=== PATIENT | male | born 1980 | race Caucasian/White ===

== ENCOUNTER 2017-01-28 20:47 | Emergency (ER) | payer SELFPAY ==
[~2017-01-28] VITALS: Ht 172.7 cm; Wt 113.6 kg
[~2017-01-28 20:47] MED LIST: LEVE500T53 PO; PERCT PO
[2017-01-28 20:55] VITALS: BP 128/83
[2017-01-28] MEDS ORDERED: LEVE250T2 PO (21:22)
== END 2017-01-28 23:25 | disposition left against medical advice (07) ==
LOC: EMS 20:50
DX: R55 Syncope and collapse (principal); R51 Headache; Z53.21 Procedure and treatment not carried out due to patient leaving prior to being seen by health care provider

== ENCOUNTER 2017-04-06 17:57 | Emergency (ER) | payer MEDICARE, MEDICAID ==
[~2017-04-06] VITALS: Ht 175.3 cm; Wt 104.5 kg
[~2017-04-06 17:57] MED LIST changes: +LEVE250T2 PO
[2017-04-06] MEDS ORDERED: LORazepam 2 MG/ML VIAL ONE (18:12)
[2017-04-06] MEDS ORDERED: LevETIRAcetam 1,000 MG in DEXTROSE 5%-WATER 100 ML IV ONE (18:15)
[2017-04-06 18:30] LABS: BASOPHILS % (AUTO) 0.3 % (0.0-2.0); EOSINOPHILS % (AUTO) 0.8 % (1.0-6.0); HEMATOCRIT 41.8 % (41-53); HEMOGLOBIN 14.5 g/dL (13.5-17.5); LYMPHOCYTES # (AUTO) 4.2 K/uL (1.0-4.8); LYMPHOCYTES % (AUTO) 28.1 % (22.0-44.0); MEAN CORPUSCULAR HEMOGLOBIN 31.6 pg (26.0-34.0); MEAN CORPUSCULAR HGB CONC 34.7 G/dL (31.0-37.0); MEAN CORPUSCULAR VOLUME 91 fL (80-100); MONOCYTES # (AUTO) 1.3 K/uL (0.1-1.0); MONOCYTES % (AUTO) 8.8 % (2.0-9.0); NEUTROPHILS # (AUTO) 9.2 K/uL (1.8-7.7); PLATELET COUNT (AUTO) 305 K/uL (150-450); RED BLOOD CELL COUNT(AUTO) 4.58 MIL/uL (4.50-5.90); RED CELL DISTRIBUTION WIDTH 13.5 % (11.5-14.5); WHITE BLOOD COUNT (AUTO) 14.9 K/uL (4.5-11.0)
[2017-04-06] MEDS ORDERED: LORazepam 2 MG/ML VIAL IVP ONE ×2 (18:30→19:00)
[2017-04-06 18:36] LABS: ANION GAP 12 mmol/L (8-16); CALCIUM, TOTAL 9.3 mg/dL (8.8-10.5); CARBON DIOXIDE 23 mmol/L (22-29); CHLORIDE 102 mmol/L (98-107); CREATININE 1.23 mg/dL (0.60-1.30); GLOMERULAR FILTR. RATE CALC > 60 mL/min (>60); POTASSIUM 3.3 mmol/L (3.5-5.1); SODIUM SERUM 137 mmol/L (136-145); UREA NITROGEN, BLOOD 18 mg/dL (7-18)
[2017-04-06 18:41] LABS: ALANINE AMINOTRANSFERASE 66 U/L (12-78); ALBUMIN 3.9 g/dL (3.4-5.0); ASPARTATE AMINOTRANSFERASE 26 U/L (15-37); BILIRUBIN,TOTAL 0.3 mg/dL (0.1-1.0); TOTAL PROTEIN, SERUM 7.7 g/dL (6.4-8.2)
[2017-04-06] MEDS ORDERED: SODIUM CHLORIDE 0.9% 1,000 ML IV ONE (19:00)
[2017-04-06] MEDS ORDERED: DIAZEPAM 5 MG/ML 2 ML SYRINGE IVP ONE (20:30)
[2017-04-06] MEDS ORDERED: DEXAMETHASONE SOD PHOS 4 MG/ML 5 ML VIAL IVP ONE (20:30)
[2017-04-06] MEDS ORDERED: ONDANSETRON HCL 4 MG/2 ML VIAL IVP ONE (21:00)
[2017-04-06] MEDS ORDERED: ACETAMINOPHEN 500 MG TABLET PO ONE (21:00)
[2017-04-06] MEDS ORDERED: HYDROmorphone 2 MG/ML SYRINGE IVP ONE (21:00)
[2017-04-06] MEDS ORDERED: MORPHINE SULFATE 4 MG/ML SYRINGE IVP ONE (21:00)
[2017-04-06 21:53] VITALS: BP 119/80
== END 2017-04-06 21:55 | disposition home or self-care (01) ==
LOC: EMS 17:58
DX: Q28.2 Arteriovenous malformation of cerebral vessels (principal); F41.9 Anxiety disorder, unspecified; R25.3 Fasciculation
CPT/HCPCS: 36415; 70450; 80053; 82962; 85025; 93005; 96361; 96365; 96375; 96376; 99291; J0712; J1100; J1885; J2060; J2270; J2405; J7030; J7060

== ENCOUNTER 2017-04-08 17:18 | Inpatient (IN) | payer MEDICARE, MEDICAID ==
[~2017-04-08] VITALS: Ht 175.3 cm; Wt 116.0 kg
[2017-04-08] MEDS ORDERED: LORazepam 2 MG/ML VIAL IVP ONE (17:30)
[2017-04-08 17:39] LABS: BASOPHILS # (AUTO) 0.05 K/uL (0.00-0.20); BASOPHILS % (AUTO) 0.5 % (0.0-2.0); EOSINOPHILS # (AUTO) 0.02 K/uL (0.00-0.70); EOSINOPHILS % (AUTO) 0.15 % (1.0-6.0); HEMATOCRIT 42.6 % (41-53); HEMOGLOBIN 14.6 g/dL (13.5-17.5); LYMPHOCYTES # (AUTO) 2.8 K/uL (1.0-4.8); LYMPHOCYTES % (AUTO) 25.3 % (22.0-44.0); MEAN CORPUSCULAR HEMOGLOBIN 31.7 pg (26.0-34.0); MEAN CORPUSCULAR HGB CONC 34.2 G/dL (31.0-37.0); MEAN CORPUSCULAR VOLUME 93 fL (80-100); MONOCYTES # (AUTO) 0.8 K/uL (0.1-1.0); MONOCYTES % (AUTO) 6.8 % (2.0-9.0); NEUTROPHILS # (AUTO) 7.5 K/uL (1.8-7.7); NEUTROPHILS % (AUTO) 67.3 % (40.0-70.0); PLATELET COUNT (AUTO) 297 K/uL (150-450); WHITE BLOOD COUNT (AUTO) 11.1 K/uL (4.5-11.0)
[2017-04-08 17:51] LABS: PROTHROMBIN TIME 10.3 SEC (9.4-11.6)
[2017-04-08 17:52] LABS: ANION GAP 12 mmol/L (8-16); CALCIUM, TOTAL 8.8 mg/dL (8.8-10.5); CARBON DIOXIDE 27 mmol/L (22-29); CHLORIDE 102 mmol/L (98-107); CREATININE 0.96 mg/dL (0.60-1.30); GLOMERULAR FILTR. RATE CALC > 60 mL/min (>60); POTASSIUM 3.3 mmol/L (3.5-5.1); SODIUM SERUM 141 mmol/L (136-145); UREA NITROGEN, BLOOD 12 mg/dL (7-18)
[2017-04-08 17:58] LABS: ALANINE AMINOTRANSFERASE 48 U/L (12-78); ALBUMIN 3.8 g/dL (3.4-5.0); ASPARTATE AMINOTRANSFERASE 16 U/L (15-37); BILIRUBIN,TOTAL 0.3 mg/dL (0.1-1.0); TOTAL PROTEIN, SERUM 7.4 g/dL (6.4-8.2)
[2017-04-08] MEDS ORDERED: MORPHINE SULFATE 4 MG/ML SYRINGE IVP ONE (19:00)
[2017-04-08] MEDS ORDERED: ONDANSETRON HCL 4 MG/2 ML VIAL IVP ONE ×2 (19:00→20:45)
[2017-04-08] MEDS ORDERED: HYDROmorphone 2 MG/ML SYRINGE IVP ONE (20:45)
[2017-04-09] VITALS (7 sets, daily range): BP systolic 107–127; BP diastolic 57–85
[2017-04-09] MEDS ORDERED: ONDANSETRON HCL 4 MG/2 ML VIAL IVP ONE (01:00)
[2017-04-09] MEDS ORDERED: HYDROmorphone 2 MG/ML SYRINGE IVP ONE (01:00)
[2017-04-09] MEDS: DOCUSATE SODIUM 100 MG CAPSULE PO SCH ×3 (01:10→20:17)
[2017-04-09] MEDS ORDERED: LORazepam 0.5 MG TABLET PO PRN (01:15)
[2017-04-09] MEDS ORDERED: POTASSIUM CHLORIDE 10% 40 MEQ/30 ML LIQUID UDCUP PO ONE (01:15)
[2017-04-09] MEDS ORDERED: HYDROCODONE/ACETAMINOPHEN 5-325 MG TABLET PO PRN (01:15)
[2017-04-09] MEDS ORDERED: ACETAMINOPHEN/CODEINE 300-30 MG TABLET PO PRN (01:15)
[2017-04-09] MEDS: DEXTROSE 5%-0.45% SODIUM CHL 1,000 ML IV SCH ×2 (01:15→12:04)
[2017-04-09] MEDS ORDERED: ACETAMINOPHEN 325 MG TABLET PO PRN (01:15)
[2017-04-09] MEDS ORDERED: HYDROmorphone 2 MG/ML SYRINGE IVP PRN (01:15)
[2017-04-09] MEDS ORDERED: OxyCODONE HCL/ACETAMINOPHEN 5-325 MG TABLET PO PRN ×2 (01:15)
[2017-04-09] MEDS: LevETIRAcetam 500 MG TABLET PO SCH ×3 (01:40→21:09)
[2017-04-09 02:34] LABS: ALANINE AMINOTRANSFERASE 50 U/L (12-78); ANION GAP 10 mmol/L (8-16); ASPARTATE AMINOTRANSFERASE 19 U/L (15-37); BILIRUBIN,TOTAL 0.4 mg/dL (0.1-1.0); CALCIUM, TOTAL 8.9 mg/dL (8.8-10.5); CARBON DIOXIDE 28 mmol/L (22-29); CHLORIDE 103 mmol/L (98-107); CREATININE 1.03 mg/dL (0.60-1.30); GLOMERULAR FILTR. RATE CALC > 60 mL/min (>60); POTASSIUM 3.7 mmol/L (3.5-5.1); SODIUM SERUM 141 mmol/L (136-145); TOTAL PROTEIN, SERUM 7.9 g/dL (6.4-8.2); UREA NITROGEN, BLOOD 16 mg/dL (7-18)
[2017-04-09] MEDS: ONDANSETRON HCL 4 MG/2 ML VIAL IVP PRN (03:48)
[2017-04-09] MEDS ORDERED: LORazepam 2 MG/ML VIAL ONE (09:26)
[2017-04-09 09:32] LABS: GLUCOSE,POINT OF CARE 138 MG/DL (70-110)
[2017-04-09] MEDS: ClonazePAM 0.5 MG TABLET PO SCH ×3 (11:17→20:17)
[2017-04-09] MEDS: VENLAFAXINE HCL 37.5 MG TABLET PO SCH ×2 (11:17→21:09)
[2017-04-09] MEDS: HYDROCODONE/ACETAMINOPHEN 5-325 MG TABLET PO PRN ×2 (11:28→20:16)
[2017-04-09] MEDS: LORazepam 2 MG/ML VIAL IVP PRN (17:53)
[2017-04-10] MEDS: DEXTROSE 5%-0.45% SODIUM CHL 1,000 ML IV SCH ×2 (01:41→11:04)
[2017-04-10] MEDS: HYDROCODONE/ACETAMINOPHEN 5-325 MG TABLET PO PRN (01:51)
[2017-04-10] MEDS: LORazepam 2 MG/ML VIAL IVP PRN ×2 (03:07→15:11)
[2017-04-10 03:13] VITALS: BP 145/95
[2017-04-10 04:06] VITALS: BP 115/81
[2017-04-10 07:25] VITALS: BP 125/79
[2017-04-10] MEDS: DOCUSATE SODIUM 100 MG CAPSULE PO SCH ×2 (07:53→21:00)
[2017-04-10] MEDS: ClonazePAM 0.5 MG TABLET PO SCH ×3 (07:53→21:00)
[2017-04-10] MEDS: LevETIRAcetam 500 MG TABLET PO SCH ×2 (07:53→21:00)
[2017-04-10] MEDS: VENLAFAXINE HCL 37.5 MG TABLET PO SCH ×2 (07:53→21:00)
[2017-04-10] MEDS: HYDROmorphone 2 MG/ML SYRINGE IVP PRN ×4 (08:13→21:00)
[2017-04-10 11:50] VITALS: BP 117/79
[2017-04-10 15:38] VITALS: BP 145/109
[2017-04-10 19:33] VITALS: BP 142/92
[2017-04-11] VITALS (9 sets, daily range): BP systolic 116–147; BP diastolic 56–91
[2017-04-11] MEDS: HYDROmorphone 2 MG/ML SYRINGE IVP PRN ×5 (01:19→18:23)
[2017-04-11] MEDS: ONDANSETRON HCL 4 MG/2 ML VIAL IVP PRN (01:19)
[2017-04-11] MEDS: DEXTROSE 5%-0.45% SODIUM CHL 1,000 ML IV SCH ×3 (04:05→22:47)
[2017-04-11] MEDS: HYDROCODONE/ACETAMINOPHEN 5-325 MG TABLET PO PRN ×2 (04:07→12:14)
[2017-04-11] MEDS: LORazepam 2 MG/ML VIAL IVP PRN ×4 (04:10→22:31)
[2017-04-11] MEDS: DOCUSATE SODIUM 100 MG CAPSULE PO SCH ×2 (09:42→20:53)
[2017-04-11] MEDS: ClonazePAM 0.5 MG TABLET PO SCH ×3 (09:42→20:53)
[2017-04-11] MEDS: LevETIRAcetam 500 MG TABLET PO SCH ×2 (09:42→20:53)
[2017-04-11] MEDS: VENLAFAXINE HCL 37.5 MG TABLET PO SCH ×2 (09:42→20:53)
[2017-04-11] MEDS ORDERED: DEXAMETHASONE SOD PHOS 10 MG/ML VIAL IVP ONE (14:45)
[2017-04-11] MEDS ORDERED: PHENYTOIN SODIUM 1,000 MG in SODIUM CHLORIDE 0.9% 150 ML IV ONE (17:45)
[2017-04-11] MEDS ORDERED: DEXAMETHASONE SOD PHOS 4 MG/ML VIAL IVP SCH (22:00)
[2017-04-12] VITALS (8 sets, daily range): BP systolic 105–154; BP diastolic 55–89
[2017-04-12] MEDS: HYDROmorphone 2 MG/ML SYRINGE IVP PRN ×5 (03:05→21:40)
[2017-04-12] MEDS: LORazepam 2 MG/ML VIAL IVP PRN ×2 (06:23→13:13)
[2017-04-12] MEDS: DOCUSATE SODIUM 100 MG CAPSULE PO SCH ×2 (08:28→21:29)
[2017-04-12] MEDS: LevETIRAcetam 500 MG TABLET PO SCH ×2 (08:28→21:29)
[2017-04-12] MEDS: ClonazePAM 0.5 MG TABLET PO SCH ×3 (08:28→21:29)
[2017-04-12] MEDS: DEXAMETHASONE SOD PHOS 4 MG/ML VIAL IVP SCH (08:29)
[2017-04-12] MEDS: VENLAFAXINE HCL 37.5 MG TABLET PO SCH ×2 (08:34→21:29)
[2017-04-12] MEDS: DEXTROSE 5%-0.45% SODIUM CHL 1,000 ML IV SCH ×2 (10:38→19:14)
[2017-04-12] MEDS ORDERED: PHENYTOIN SODIUM 300 MG in SODIUM CHLORIDE 0.9% 100 ML IV SCH (21:00)
[2017-04-13 04:12] VITALS: BP 120/73
[2017-04-13] MEDS: HYDROmorphone 2 MG/ML SYRINGE IVP PRN ×2 (04:16→09:40)
[2017-04-13] MEDS: DEXTROSE 5%-0.45% SODIUM CHL 1,000 ML IV SCH ×2 (04:20→17:28)
[2017-04-13 06:44] LABS: ALANINE AMINOTRANSFERASE 48 U/L (12-78); ALBUMIN 3.8 g/dL (3.4-5.0); ANION GAP 9 mmol/L (8-16); ASPARTATE AMINOTRANSFERASE 20 U/L (15-37); BILIRUBIN,TOTAL 0.4 mg/dL (0.1-1.0); CALCIUM, TOTAL 9.3 mg/dL (8.8-10.5); CARBON DIOXIDE 27 mmol/L (22-29); CHLORIDE 102 mmol/L (98-107); GLOMERULAR FILTR. RATE CALC > 60 mL/min (>60); POTASSIUM 3.5 mmol/L (3.5-5.1); SODIUM SERUM 138 mmol/L (136-145); TOTAL PROTEIN, SERUM 7.6 g/dL (6.4-8.2); UREA NITROGEN, BLOOD 10 mg/dL (7-18)
[2017-04-13 07:16] VITALS: BP 139/79
[2017-04-13] MEDS: ClonazePAM 0.5 MG TABLET PO SCH (08:45)
[2017-04-13] MEDS: DEXAMETHASONE SOD PHOS 4 MG/ML VIAL IVP SCH (08:45)
[2017-04-13] MEDS: LevETIRAcetam 500 MG TABLET PO SCH (08:45)
[2017-04-13] MEDS: VENLAFAXINE HCL 37.5 MG TABLET PO SCH (08:45)
[2017-04-13] MEDS: DOCUSATE SODIUM 100 MG CAPSULE PO SCH (08:53)
[2017-04-13] MEDS ORDERED: HYDROmorphone HCL 2 MG TABLET PO PRN (10:45)
[2017-04-13 11:34] VITALS: BP 134/88
[2017-04-13 15:29] VITALS: BP 140/73
[2017-04-13] MEDS ORDERED: ClonazePAM 0.5 MG TABLET PO SCH (16:00)
[2017-04-13] MEDS ORDERED: CLON1 PO (16:46)
[2017-04-13] MEDS ORDERED: DEXA41I IVP (16:47)
[2017-04-13] MEDS ORDERED: DSS100 PO (16:48)
[2017-04-13] MEDS ORDERED: [UNRECOGNIZED DRUG - CODE] IV (16:48)
[2017-04-13] MEDS ORDERED: PHEN250I IV (16:49)
[2017-04-13] MEDS ORDERED: VENL-53 PO (16:50)
[2017-04-13] MEDS ORDERED: ACET650S28 PO (16:51)
[2017-04-13] MEDS ORDERED: HYDR-309 PO (16:59)
[2017-04-13] MEDS ORDERED: HYDR2 PO (17:00)
[2017-04-13] MEDS ORDERED: LORA2VIA8 IV (17:02)
[2017-04-13] MEDS ORDERED: LORA0.5T2 PO (17:04)
[2017-04-13] MEDS ORDERED: ONDA4VIA30 IV (17:06)
== END 2017-04-13 18:20 | disposition short-term general hospital (02) | DRG 101 ==
LOC: EMS 17:20 → 6N 04-09 00:59 → 5S 04-11 19:41
PROVIDERS: ADMIT Internal Medicine; ATTEND Internal Medicine
DX: G40.909 Epilepsy, unspecified, not intractable, without status epilepticus (principal); Q27.30 Arteriovenous malformation, site unspecified; R51 Headache; R03.0 Elevated blood-pressure reading, without diagnosis of hypertension; F41.9 Anxiety disorder, unspecified; G89.4 Chronic pain syndrome; R32 Unspecified urinary incontinence; Z79.899 Other long term (current) drug therapy; Z82.0 Family history of epilepsy and other diseases of the nervous system; Z92.3 Personal history of irradiation; Z92.21 Personal history of antineoplastic chemotherapy
CPT/HCPCS: 70450; 82962; 83735; 87081; 93005; 95816; 96374; 96375; 96376; 97162; 99291; G0480; J1100; J1165; J1170; J2060; J2270; J2405; J7050

== ENCOUNTER 2017-04-16 07:50 | Emergency (ER) | payer MEDICARE, MEDICAID ==
[~2017-04-16] VITALS: Ht 175.3 cm; Wt 106.8 kg
[~2017-04-16 07:50] MED LIST changes: +ACET650S28 PO; +CLON1 PO; +DEXA41I IVP; +DSS100 PO; +HYDR-309 PO; +HYDR2 PO; -LEVE250T2 PO; +LORA0.5T2 PO; +LORA2VIA8 IV; +ONDA4VIA30 IV; +PHEN250I IV; +VENL-53 PO; +[UNRECOGNIZED DRUG - CODE] IV
[2017-04-16] MEDS ORDERED: LEVE250T55 PO (07:55)
[2017-04-16 08:36] VITALS: BP 142/100
[2017-04-16] MEDS ORDERED: LORazepam 1 MG TABLET PO ONE ×2 (09:15)
== END 2017-04-16 09:21 | disposition home or self-care (01) ==
LOC: EMS 07:55
DX: F41.9 Anxiety disorder, unspecified (principal); F15.10 Other stimulant abuse, uncomplicated; F17.200 Nicotine dependence, unspecified, uncomplicated
CPT/HCPCS: 99283; 99406

== ENCOUNTER 2017-04-16 20:34 | Emergency (ER) | payer MEDICARE, MEDICAID ==
[~2017-04-16] VITALS: Ht 172.7 cm; Wt 106.8 kg
[~2017-04-16 20:34] MED LIST changes: +LEVE250T55 PO
[2017-04-16] MEDS ORDERED: SODIUM CHLORIDE 0.9% 1,000 ML IV ONE (21:00)
[2017-04-16] MEDS ORDERED: LORazepam 2 MG/ML VIAL IVP ONE (21:00)
[2017-04-16 21:07] LABS: BASOPHILS % (AUTO) 0.4 % (0.0-2.0); EOSINOPHILS % (AUTO) 4.3 % (1.0-6.0); HEMATOCRIT 45.4 % (41-53); HEMOGLOBIN 15.6 g/dL (13.5-17.5); LYMPHOCYTES # (AUTO) 2.7 K/uL (1.0-4.8); MEAN CORPUSCULAR HEMOGLOBIN 31.7 pg (26.0-34.0); MEAN CORPUSCULAR HGB CONC 34.3 G/dL (31.0-37.0); MEAN CORPUSCULAR VOLUME 92 fL (80-100); MONOCYTES # (AUTO) 0.8 K/uL (0.1-1.0); MONOCYTES % (AUTO) 7.9 % (2.0-9.0); NEUTROPHILS % (AUTO) 60.4 % (40.0-70.0); PLATELET COUNT (AUTO) 350 K/uL (150-450); RED BLOOD CELL COUNT(AUTO) 4.91 MIL/uL (4.50-5.90); RED CELL DISTRIBUTION WIDTH 13.5 % (11.5-14.5)
[2017-04-16 21:17] LABS: ANION GAP 12 mmol/L (8-16); CALCIUM, TOTAL 9.6 mg/dL (8.8-10.5); CARBON DIOXIDE 25 mmol/L (22-29); CHLORIDE 103 mmol/L (98-107); CREATININE 1.15 mg/dL (0.60-1.30); GLOMERULAR FILTR. RATE CALC > 60 mL/min (>60); POTASSIUM 3.6 mmol/L (3.5-5.1); SODIUM SERUM 140 mmol/L (136-145); UREA NITROGEN, BLOOD 13 mg/dL (7-18)
[2017-04-16 21:23] LABS: ALANINE AMINOTRANSFERASE 53 U/L (12-78); ALBUMIN 3.9 g/dL (3.4-5.0); ASPARTATE AMINOTRANSFERASE 23 U/L (15-37); BILIRUBIN,TOTAL 0.5 mg/dL (0.1-1.0); TOTAL PROTEIN, SERUM 7.7 g/dL (6.4-8.2)
[2017-04-16] MEDS ORDERED: PHENYTOIN SODIUM 1,000 MG in SODIUM CHLORIDE 0.9% 150 ML IV ONE (21:45)
[2017-04-16 23:43] VITALS: BP 106/69
== END 2017-04-16 23:47 | disposition home or self-care (01) ==
LOC: EMS 20:37
DX: G40.909 Epilepsy, unspecified, not intractable, without status epilepticus (principal); F41.9 Anxiety disorder, unspecified; F15.10 Other stimulant abuse, uncomplicated; F17.200 Nicotine dependence, unspecified, uncomplicated
CPT/HCPCS: 36415; 80053; 80185; 80307; 85025; 96361; 96365; 96375; 99284; 99406; G0480; G0482; J1165; J2060; J7030; J7050

== ENCOUNTER 2017-04-30 02:57 | Emergency (ER) | payer MEDICARE, MEDICAID ==
[~2017-04-30] VITALS: Ht 172.7 cm; Wt 110.0 kg
[~2017-04-30 02:57] MED LIST changes: -ACET650S28 PO; -CLON1 PO; -DEXA41I IVP; -DSS100 PO; -HYDR-309 PO; -HYDR2 PO; -LEVE500T53 PO; -LORA0.5T2 PO; -LORA2VIA8 IV; -ONDA4VIA30 IV; -PERCT PO; -PHEN250I IV; -VENL-53 PO; -[UNRECOGNIZED DRUG - CODE] IV
[2017-04-30] MEDS ORDERED: IPRATROPIUM BROMIDE 0.5 MG/2.5 ML NEB SOLUTION NEB ONE (03:45)
[2017-04-30] MEDS ORDERED: PredniSONE 20 MG TABLET PO ONE (03:45)
[2017-04-30] MEDS ORDERED: ALBUTEROL SULFATE 5 MG/ML 20 ML NEB SOLN [BULK] NEB ONE (03:45)
[2017-04-30] MEDS ORDERED: 0.9% SODIUM CHLORIDE 5 ML NEB SOLUTION NEB ONE (03:55)
[2017-04-30 04:10] VITALS: BP 106/49
== END 2017-04-30 04:42 | disposition home or self-care (01) ==
LOC: EMS 02:59
DX: J40 Bronchitis, not specified as acute or chronic (principal)
CPT/HCPCS: 71010; 94640; 99283; J7512

== ENCOUNTER 2017-05-03 18:24 | Emergency (ER) | payer MEDICARE, MEDICAID ==
[~2017-05-03] VITALS: Ht 175.3 cm; Wt 109.0 kg
[2017-05-03] MEDS ORDERED: HYDROCODONE/ACETAMINOPHEN 5-325 MG TABLET PO ONE (19:45)
[2017-05-03] MEDS ORDERED: ONDANSETRON HCL 4 MG TABLET PO ONE (19:45)
[2017-05-03] MEDS ORDERED: LEVALBUTEROL HCL 1.25 MG/0.5 ML NEB SOLUTION NEB ONE (19:45)
[2017-05-03] MEDS ORDERED: LORazepam 1 MG TABLET PO ONE (19:45)
[2017-05-03] MEDS ORDERED: IPRATROPIUM BROMIDE 0.5 MG/2.5 ML NEB SOLUTION NEB ONE (19:45)
[2017-05-03 19:59] LABS: BASOPHILS % (AUTO) 0.3 % (0.0-2.0); EOSINOPHILS % (AUTO) 2.1 % (1.0-6.0); HEMATOCRIT 43.7 % (41-53); HEMOGLOBIN 14.9 g/dL (13.5-17.5); LYMPHOCYTES # (AUTO) 3.6 K/uL (1.0-4.8); LYMPHOCYTES % (AUTO) 23.9 % (22.0-44.0); MEAN CORPUSCULAR HEMOGLOBIN 31.4 pg (26.0-34.0); MEAN CORPUSCULAR HGB CONC 34.1 G/dL (31.0-37.0); MEAN CORPUSCULAR VOLUME 92 fL (80-100); MONOCYTES # (AUTO) 1.1 K/uL (0.1-1.0); MONOCYTES % (AUTO) 7.4 % (2.0-9.0); NEUTROPHILS % (AUTO) 66.3 % (40.0-70.0); PLATELET COUNT (AUTO) 339 K/uL (150-450); RED BLOOD CELL COUNT(AUTO) 4.75 MIL/uL (4.50-5.90); RED CELL DISTRIBUTION WIDTH 14.2 % (11.5-14.5)
[2017-05-03 20:09] LABS: ANION GAP 7 mmol/L (8-16); CALCIUM, TOTAL 9.5 mg/dL (8.8-10.5); CARBON DIOXIDE 26 mmol/L (22-29); CHLORIDE 104 mmol/L (98-107); CREATININE 1.11 mg/dL (0.60-1.30); GLOMERULAR FILTR. RATE CALC > 60 mL/min (>60); POTASSIUM 3.6 mmol/L (3.5-5.1); SODIUM SERUM 137 mmol/L (136-145); UREA NITROGEN, BLOOD 15 mg/dL (7-18)
[2017-05-03 20:35] LABS: ALANINE AMINOTRANSFERASE 69 U/L (12-78); ALBUMIN 3.7 g/dL (3.4-5.0); ASPARTATE AMINOTRANSFERASE 33 U/L (15-37); BILIRUBIN,TOTAL 0.3 mg/dL (0.1-1.0); CREATINE KINASE, TOTAL 300 U/L (39-308); TOTAL PROTEIN, SERUM 7.4 g/dL (6.4-8.2)
[2017-05-03 20:39] LABS: INR 0.9 (0.9-1.1); PROTHROMBIN TIME 9.7 SEC (9.4-11.6)
[2017-05-03] MEDS ORDERED: HYDROmorphone 2 MG/ML SYRINGE IVP ONE (21:30)
[2017-05-03] MEDS ORDERED: ALBUTEROL SULFATE HFA 90 MCG/PUFF 8 GM INHALER IH ONE (22:30)
[2017-05-03] MEDS ORDERED: LEVOFLOXACIN 500 MG/D5% WATER 100 ML IV ONE (22:30)
[2017-05-03 23:56] VITALS: BP 118/73
[2017-05-04 12:27] LABS: D-DIMER QNT.-ALV HOSP 0.41 mg/L (0.19-0.50)
== END 2017-05-04 | disposition home or self-care (01) ==
LOC: EMS 18:26
DX: J40 Bronchitis, not specified as acute or chronic (principal)
CPT/HCPCS: 70450; 85379; 93005; 94640; 96365; 96375; 99285; J1170; J1956; J3535; Q0162

== ENCOUNTER 2017-05-17 16:58 | Emergency (ER) | payer MEDICARE, MEDICAID ==
[~2017-05-17] VITALS: Ht 175.3 cm; Wt 118.0 kg
[2017-05-17] MEDS ORDERED: ClonazePAM 1 MG TABLET PO ONE (17:45)
[2017-05-17 17:46] LABS: BASOPHILS % (AUTO) 0.5 % (0.0-2.0); EOSINOPHILS % (AUTO) 6.4 % (1.0-6.0); HEMATOCRIT 44.7 % (41-53); HEMOGLOBIN 15.5 g/dL (13.5-17.5); LYMPHOCYTES # (AUTO) 2.4 K/uL (1.0-4.8); MEAN CORPUSCULAR HEMOGLOBIN 31.7 pg (26.0-34.0); MEAN CORPUSCULAR HGB CONC 34.7 G/dL (31.0-37.0); MEAN CORPUSCULAR VOLUME 91 fL (80-100); MONOCYTES # (AUTO) 0.7 K/uL (0.1-1.0); MONOCYTES % (AUTO) 7.1 % (2.0-9.0); NEUTROPHILS # (AUTO) 5.6 K/uL (1.8-7.7); PLATELET COUNT (AUTO) 361 K/uL (150-450); RED CELL DISTRIBUTION WIDTH 13.2 % (11.5-14.5); WHITE BLOOD COUNT (AUTO) 9.3 K/uL (4.5-11.0)
[2017-05-17] MEDS ORDERED: ONDANSETRON HCL 4 MG TABLET PO ONE (18:00)
[2017-05-17 18:01] LABS: ANION GAP 11 mmol/L (8-16); CALCIUM, TOTAL 8.4 mg/dL (8.8-10.5); CARBON DIOXIDE 28 mmol/L (22-29); CHLORIDE 103 mmol/L (98-107); CREATININE 1.13 mg/dL (0.60-1.30); GLOMERULAR FILTR. RATE CALC > 60 mL/min (>60); POTASSIUM 3.8 mmol/L (3.5-5.1); SODIUM SERUM 142 mmol/L (136-145); UREA NITROGEN, BLOOD 10 mg/dL (7-18)
[2017-05-17 18:07] LABS: ALANINE AMINOTRANSFERASE 81 U/L (12-78); ALBUMIN 3.6 g/dL (3.4-5.0); ASPARTATE AMINOTRANSFERASE 41 U/L (15-37); BILIRUBIN,TOTAL 0.3 mg/dL (0.1-1.0); TOTAL PROTEIN, SERUM 7.7 g/dL (6.4-8.2)
[2017-05-17 18:33] LABS: APPEARANCE,URINE CLEAR (CLEAR); GLUCOSE, URINE (UA) NEGATIVE (NEGATIVE); KETONES,URINE NEGATIVE (NEGATIVE); LEUKOCYTE ESTERASE ,URINE NEGATIVE (NEGATIVE); OCCULT BLOOD,URINE NEGATIVE (NEGATIVE); PH,URINE 5.5 (5.0-8.0); PROTEIN,URINE NEGATIVE (NEGATIVE)
[2017-05-17 18:36] LABS: ADD UA MICROSCOPIC NO
[2017-05-17 19:10] VITALS: BP 120/67
== END 2017-05-17 19:28 | disposition home or self-care (01) ==
LOC: EMS 16:59
DX: G40.109 Localization-related (focal) (partial) symptomatic epilepsy and epileptic syndromes with simple partial seizures, not intractable, without status epilepticus (principal)
CPT/HCPCS: 36415; 80053; 80307; 81003; 85025; 99285; Q0162